=== PATIENT | male | born 1970 | race Caucasian/White ===

== ENCOUNTER 2025-01-08 09:07 | Outpatient (CLI) | payer OTHER, SELFPAY ==
--- NOTE | ~2025-01-08 | US_ITS ---
Abdominal Sonogram: Real-time sonographic imaging of the abdomen was performed. Clinical History: Fatty liver Findings: The liver appears normal with no evidence of mass lesion or bile duct dilatation. Main por [place] vein demonstrates normal direction of flow. The spleen is normal in size without evidence of foca l lesion. The gallbladder is well distended, and appears normal with no evidence of gallstone or wal l thickening. The common bile duct measures 3 mm. The visualized pancreas, aorta, and IVC are unrema rkable. The right kidney measures 12.5 cm in length and the left kidney measures 13.4 cm. There is no hydronephrosis or renal calculus. Small hepatic cysts are present. Impression: Unremarkable abdominal ultrasound. Reviewed, dictated and finalized at location . Impression: Unremarkable abdominal ultrasound.
== END 2025-01-08 09:08 | disposition home or self-care (01) ==
DX: K76.0 Fatty (change of) liver, not elsewhere classified (principal)
CPT/HCPCS: 76700